=== PATIENT | male | born 1995 | race Caucasian/White ===

== ENCOUNTER 2018-01-21 18:55 | Emergency (ER) | END 2018-01-22 00:11 | disposition home or self-care (01) ==

== ENCOUNTER 2018-03-18 08:33 | Emergency (ER) | END 2018-03-18 11:59 | disposition home or self-care (01) ==

== ENCOUNTER 2018-05-09 12:37 | Emergency (ER) | END 2018-05-09 14:24 | disposition home or self-care (01) ==